=== PATIENT | female | born 1990 | race Hispanic/Latino ===

== ENCOUNTER 2016-08-18 23:23 | Emergency (ER) | payer SELFPAY ==
[~2016-08-18] VITALS: Ht 162.6 cm; Wt 75.0 kg
[~2016-08-18 23:23] MED LIST: ASCO250T6 PO; DSS100 PO; DUL10S PR; FES300 PO; IBUP-1152 PO; OXYC1TAB11 PO; PREN1TAB47 PO
[2016-08-18 23:26] VITALS: BP 120/83; PULSE 74; RESP 16; O2SAT 99
--- NOTE | 2016-08-19 00:26 | ED.REPORT ---
HPI-Abd Pain F Under 39 Date of Service Aug 19, 2016 ED Provider: Dr. Vic Camacho D.O. A 25 year old female with a history of class 2 TB presents to the ED accompanied by her family with sharp left flank pain onset tonight. She denies vaginal discharge or vaginal bleeding. She was seen at [facility] four days ago, diagnosed with a vaginal infection, and placed on Flagyl. She is still waiting for lab results from that visit. The patient speaks Irish and her niece was translating. Nursing Notes Stated Complaint: LOW BACK PAIN, LEG PAIN, FAINTING Chief Complaint: Female Abdominal Pain Nursing Notes Reviewed: Yes Allergies: Coded Allergies: No Known Allergies (Unverified Allergy, 11/15/12) Scheduled Ascorbic Acid-Expunged Drug, Do Not Renew! (Vitamin C-Expunged Drug, Do Not Renew!) 250 Mg Tablet 250 MG PO BIDWM Bisacodyl-Expunged Drug, Do Not Renew! (Bisacodyl-Expunged Drug, Do Not Renew!) 10 Mg Supp 10 MG CA DAILYP REMOVE WRAPPER PRIOR TO INSERTION Docusate Sod-Expunged Drug, Do Not Renew! (Docusate Sod-Expunged Drug, Do Not Renew!) 100 Mg Capsule 100 MG PO TID Ferrous Sulfate-Expunged Drug, Do Not Renew! (Feosol-Expunged Drug, Do Not Renew !) 325 Mg Tablet 325 MG PO BIDWM Vit/Fe Fumarate/Fa-Expunged Drug, Do (-Expunged Drug, Do Not Renew!) 1 Tab Tablet 1 TAB PO DAILY Scheduled PRN IBUPROFEN-Expunged Drug, Do Not Renew! (IBUPROFEN-Expunged Drug, Do Not Renew!) 800 Mg Tablet 800 MG PO every 6 hours PRN PRN TAKE WITH FOOD Oxycodone/APAP-Expunged Drug, Do Not Renew! (Percocet-Expunged Drug, Do Not Renew!) 1 Each Tablet 2 EACH PO Every 6 hours PRN PRN General Time Seen by MD: 00:26 Chief Complaint Flank pain left Hx Obtained From: Patient Arrived By: Walk-in Sudden in Onset?: No Onset Occurred: 5 - 8 hours ago Symptom Duration: Since onset Location: : Flank left Quality: Painful Severity: Current: Moderate Severity: Maximum: Moderate Associated with: Denies: Fever, Vaginal bleeding, Vaginal discharge Sexual History / Control: Reports Pt is sexually active Pertinent Negative: Relieved by nothing Recent Healthcare: Recent doctor visit Similar Sx Previous: No Past Medical History Past Medical History Class 2 TB; the patient completed treatment. Past Surgical History Reports: Smoking History Never Smoker Social History Other Social History: Good social support, Ambulatory Status Independent Review of Systems Constitutional: Denies: Fever Female: Reports: Flank pain (Left), Denies: Vaginal bleeding - abnl, Vaginal discharge Complete sys rev & neg: except as marked. Physical Exam Initial Vital Signs Vital Signs (First) Date Time Temp Pulse Resp B/P Pulse Ox O2 Delivery O2 Flow Rate FiO2 08/18/16 23:26 36.3 74 16 120/83 99 Room Air Initial VS: Reviewed Head / Eyes: Atraumatic, Normocephalic ENT: Conjunctiva normal, No scleral icterus Neck: Supple, Full range of motion Skin: Warm, Dry, No cyanosis Neurologic: Alert, Oriented, Nonfocal Psychiatric: Mood/affect normal, Behavior normal, Normal thought content General/Constitutional: Awake, Alert Respiratory / Chest: Breath sounds NL, Breath sounds = bilat, No respiratory distress Cardiovascular: Heart rate NL, Regular rhythm, Heart sounds NL Abdomen: Soft Tenderness/Guarding/Rebound: Positive: Tender LLQ... 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 (Moderate) Interpretation & Diagnostics US PELVIS TRANSVAGINAL Complex cystic abnormality in the region of the left ovary measuring 4.7 x 3.7cm in size which may represent a complex hemorrhagic cyst or cysts. Short interval followup ultrasound is recommended to ensure stability/resolution. Radiologist: Kishor Perez MD 08/19/2016 - 4:06:06 AM PST URINE DIP 1.005 sp gravity 6 pH Trace leukocytes Otherwise negative Lab Results Interpretation Result Diagram: 08/19/16 0110 08/19/16 0110 Test 08/18/16 23:35 08/19/16 01:10 08/19/16 01:25 Urine Color Straw (YELLOW) Urine Appearance Clear (CLEAR,HAZY) Urine pH 6.5 (5.0-8.0) Urine Specific Dexter 1.010 (1.003-1.035) Urine Protein Negativemg/dL (NEG,TRACE) Urine Glucose (UA) Negativemg/dL (NEGATIVE) Urine Ketones Negativemg/dL (NEGATIVE) Urine Occult Blood Trace (NEGATIVE) Urine Nitrite Negative (NEGATIVE) Urine Bilirubin Negative (NEGATIVE) Urine Urobilinogen Normalmg/dL (NORMAL) Urine Leukocyte Esterase Trace (NEGATIVE) Urine RBC 0-2/hpf (0-2) Urine WBC 0-5/hpf (0-5) Urine Epithelial Cells Few/hpf (NONE-MOD) Urine Crystals None seen (NONE SEEN) Urine Bacteria Few/hpf (NONE-FEW) Urine Hyaline Casts None/lpf (NONE) Urine Granular Casts None seen (NONE SEEN) Urine Waxy Casts None seen (NONE SEEN) Urine Red Blood Cell Casts None seen (NONE SEEN) Urine White Blood Cell Casts None seen (NONE SEEN) Urine Mucus Present (None Seen) Urine Trichomonas None seen (NONE SEEN) Urine Yeast None (NONE SEEN) Urinalysis Comment None Urine Culture Reflexed Indicated White Blood Count 10.9th/mm3 (3.8-10.1) Red Blood Count 5.13mil/mm3 (3.90-5.20) Hemoglobin 15.1g/dL (12.0-15.6) Hematocrit 43.2% (35.0-46.0) Mean Corpuscular Volume 84.2fL (81-100) Mean Corpuscular Hemoglobin 29.4pg (27.0-35.0) Mean Corpuscular Hemoglobin Concent 35.0% (32.0-37.0) Red Cell Distribution Width 12.8% (12.3-15.4) Platelet Count 241bil/L (150-400) Neutrophils (%) (Auto) 71.3% (40-74) Lymphocytes (%) (Auto) 17.5% (14-46) Monocytes (%) (Auto) 9.9% (4-12) Eosinophils (%) (Auto) 0.7% (0-5) Basophils (%) (Auto) 0.3% (0-3) Sodium Level 138mEq/L (134-144) Potassium Level 3.7mEq/L (3.5-5.2) Chloride Level 99mEq/L (97-108) Carbon Dioxide Level 24mmol/L (18-29) Blood Urea Nitrogen 9mg/dL (6-20) Creatinine 0.60mg/dL (0.57-1.00) Estimat Glomerular Filtration Rate 173mL/min (>59) Glucose Level 99mg/dL (60-99) Calcium Level 9.6mg/dL (8.5-10.1) Total Bilirubin 0.4mg/dL (0.0-1.2) Aspartate Amino Transf (AST/SGOT) 19U/L (0-50) Alanine Aminotransferase (ALT/SGPT) 13U/L (0-32) Alkaline Phosphatase 73U/L (25-150) Total Protein 7.9g/dL (6.4-8.4) Albumin 4.6g/dL (3.4-5.0) Hold Urine Received (Received) CT Abd / Pelvis Interpretation CONCLUSION: No hydronephrosis or renal calculi are identified. 5 cm cyst lesion in the region of the left ovary which may represent a mildly complex or hemorrhagic left ovarian cyst. If further evaluation of the reproductive organs is felt warranted, pelvic ultrasound may be of benefit. Findings suggesting constipation. Findings consistent with old granulomatous disease. Transmitted to ED by Kishor Perez M.D. at 08/19/16 - 2:05:17 AM PST Study type: Abdominal CT no contrast Re-Eval/Medical Decision Source of Hx: Old records Re-Evaluation/Progress : Time of Eval: 02:30 Patient Status: Condition improved Re-Evaluation/Progress Note: Pelvic exam performed. Discussed with patient CT results, diagnosis, and plan for US then probable discharge. Follow-up and return to the ER instructions given. Patient agrees with plan for care and all questions were addressed. Counseled Regarding: Diagnosis, Lab results, Need for follow-up, When/why to return to ED Discharge & Departure Shift Change Sign-Out Response to Therapy: Improved Primary Impression: Ovarian cyst Laterality: left Qualified Code: N83.20 - Unspecified ovarian cysts Additional Impression: UTI (urinary tract infection) Urinary tract infection type: acute cystitis Hematuria presence: without hematuria Qualified Code: N30.00 - Acute cystitis without hematuria Disposition: Home Discharge Condition All VS Reviewed: Yes Condition: Stable Patient Instructions: Cervicitis (ED), Ovarian Cyst (ED), Urinary Tract Infection in Women (DC) Additional Instructions: The imaging reveals that you have a hemorrhagic left ovarian cyst. This needs to be followed up with closely. You also have signs of a cervix infection as well as a urinary tract infection. Take both doxycycline and Bactrim twice daily for 7 days. Take 1-2 [place] every 6 hours as needed for pain. Do not drive or drink alcohol or consume acetaminophen while taking the [place]. Set up a follow-up with your depilatory painter/primary care physician. Have the ultrasound results reviewed. We have sent off a urine testing for pelvic infection and this too needs to be followed up with. If the urine test for pelvic infection or positive then your partner will need to be treated. No sexual intercourse until these results are back. You should be seen in follow up in the next 7 days. Avoid direct sunlight while taking the doxycycline. Referrals: Evan Julien MD (PCP) Benny Attestation Portions of this note were transcribed by Tata Diaz and Trish Rosado. I, Dr. Camacho, personally performed the history, physical exam, and medical decision- making; I reviewed and confirmed the accuracy of the information in the transcribed note. Signed by: Benny Centeno, 08/19/2016, 03:09 Signed by: Benny Singleton, 08/19/2016 04:12 copies to: Evan Julien MD, Todd P DO Aug 19, 2016 00:26 TATA DIAZ Aug 19, 2016 00:37 Trish Rosado Aug 19, 2016 04:12
[2016-08-19] MEDS ORDERED: cefTRIAXone Inj 2,000 MG in IV Premix 1 EACH IV ONE (00:35)
[2016-08-19] MEDS ORDERED: 0.9% Sodium Chloride 1,000 ML IV ONE (00:35)
[2016-08-19 00:43] LABS: APPEARANCE,URINE CLEAR (CLEAR,HAZY); COLOR,URINE STRAW (YELLOW); OCCULT BLOOD,URINE TRACE (NEGATIVE); PH,URINE 6.5 (5.0-8.0); UROBILINOGEN,URINE NORMAL (NORMAL)
[2016-08-19] MEDS: HYDROmorphone 0.5 mg/0.5 mL iSecure Syringe IVPUSH PRN ×2 (01:20→01:21)
[2016-08-19] MEDS: Ondansetron 2 mg/mL 2 mL Inj IVPUSH PRN (01:21)
[2016-08-19 01:29] LABS: BASOPHILS % (AUTO) 0.3 % (0-3); EOSINOPHILS % (AUTO) 0.7 % (0-5); MONOCYTES % (AUTO) 9.9 % (4-12); Mean Corpuscular Hemoglobin 29.4 pg (27.0-35.0); Mean Corpuscular Volume 84.2 fL (81-100); NEUTROPHILS % (AUTO) 71.3 % (40-74); Platelet Count 241 bil/L (150-400)
[2016-08-19] MEDS ORDERED: _HYDROcodone/APAP 5-325 mg Tablet PO PRN (02:00)
[2016-08-19 03:55] VITALS: BP 120/77; PULSE 87; RESP 16; O2SAT 99
--- NOTE | 2016-08-19 08:38 | DRSVH ---
PROCEDURE: CT KUB ([id number]) INDICATIONS: left flank pain TECHNIQUE: Noncontrast 5 mm thick sections acquired from the diaphragms to the symphysis. 5 mm thick coronal an d sagittal reformats were then performed. For radiation dose reduction, the following was used: aut omated exposure control, adjustment of mA and/or kV according to patient size. COMPARISON: [facility], US, US PELVIC+TRANSVAG+DOP LTD, 08/19/2016, 2:54. FINDINGS: Image quality: Excellent. Lung bases: There is a small nonspecific nodule in the right lower lobe measuring up to 4 mm. A lyn cified right lower lobe nodule is also demonstrated in the right posterior costophrenic angle consist ent with a calcified granuloma. Heart size is normal. Urinary system: Both kidneys are normal in size. No kidney stones. No hydronephrosis or perinephri c fat stranding. Both ureters appear non-dilated throughout their expected courses. Bladder wall th ickness is normal; no calcified bladder stones. Other solid organs: Liver and spleen are normal in size. Gallbladder appears within normal limits w ithout calcified gallstones. Pancreas is normal in contours. No adrenal nodules. Peritoneum and bowel: Unenhanced bowel loops demonstrate normal wall thickness and caliber. The amena endix is normal in appearance. No free fluid or air. Nodes and vessels: No retroperitoneal or mesenteric adenopathy by size criteria. Aorta and inferior vena cava are normal in caliber. Abdominal wall: No ventral hernias. Pelvis: The left ovary is enlarged measuring up to 5.2 x 3.7 cm with a septated left ovarian cyst de monstrated. Right ovary and uterus appear within normal size limits. No free pelvic fluid. No ingu inal hernias or adenopathy. Bones: No suspicious bony lesions. No vertebral body compression fractures. IMPRESSION: 1. No evidence of hydronephrosis or nephrolithiasis. 2. Enlargement of the left ovary with a septated cyst demonstrated. Recommend correlation with subs equent pelvic ultrasound. 3. Small 4 mm nonspecific right lower lobe pulmonary nodule. Recommend followup as per recommendati ons below. Fleischner Society criteria for SOLID lung nodule followup. Nodule size (mm)Low-risk patientHigh-risk [id number] follow-up neededFollow-up at 12 mo; if no aponte e, no further follow-up>5-6Gutpet-ot CT at 12 mo; if no pulmonary nodule. recommend followup as per r ecommendations below. change, no further follow-up needed.Initial follow-up CT at 6-12 mo, then 18-24 mo if no change. > 6-8Initial follow-up CT at 6-12 mo, then 18-24 mo if no change. Initial follow-up CT at 3-6 mo, then 9-12 mo and 24 mo if no change. >8Follow-up CT at 3, 9, 24 mo. Or PET and/or biopsy.Same as for low -risk pts. Dictated by: Cong Medeiros M.D. on 08/19/2016 at 8:37 Approved by: Cong Medeiros M.D. on 08/19/2016 at 8:37
--- NOTE | 2016-08-19 09:35 | DRSVH ---
PROCEDURE: US PELVIC SONOGRAM WITH TRANSVAG AND DOPPLER, LIMITED INDICATIONS: left flank and pelvic pain, 5cm cystic lesion CT TECHNIQUE: Real-time scanning was performed of the pelvic organs, with image documentation. Additional endovagi nal scanning was necessary due to incomplete visualization of the adnexal and endometrial structures by transabdominal scanning. COMPARISON: [facility], CT, CT KUB, 08/19/2016, 1:46. FINDINGS: (orthogonal measurements) Uterus size: 6.27 cm, 3.53 cm, 4.61 cm Endometrium thickness: 1.07 cm Right ovary size: 1.72 cm, 2.77 cm, 2.50 cm Left ovary size: 5.37 cm, 4.11 cm, 5.58 cm Transabdominal scanning: Limited scanning through the kidneys shows no hydronephrosis. No pathologi c free abdominal or pelvic fluid. Endovaginal scanning: Uterus: Uterus is normal in size and appearance. Endometrium is within normal physiologic limits. Ovaries: Normal right ovary. Complex, thickwalled cystic mass involves the left ovary measuring 4.8 x 4.9 x 3.7 cm. Doppler assessment demonstrates normal ovarian flow bilaterally. IMPRESSION: 1. Thick walled, complex left ovarian mass measuring up to 4.9 cm. Findings likely related to hemor rhagic ovarian cyst but tubo-ovarian abscess or other neoplastic process would be included in the dif ferential. Recommend clinical correlation and short-term followup pelvic ultrasound in 6-12 weeks is recommended. Note: These findings are concordant with the preliminary interpretation. Dictated by: Bj SINGER Interpreted: Phuong Webber MD on 08/19/2016 at 9:34 Transcribed by: YUMI on 08/19/2016 at 9:34 Approved by: Phuong Webber M.D. on 08/19/2016 at 16:30
== END 2016-08-19 03:54 | disposition home or self-care (01) ==
LOC: SED 23:23
DX: N83.209 Unspecified ovarian cyst, unspecified side (principal); N30.00 Acute cystitis without hematuria
CPT/HCPCS: 36415; 74176; 76830; 76856; 80053; 81000; 81025; 85025; 87086; 87491; 87591; 93976; 96361; 96365; 96375; 99285; J0696; J1170; J2405; J7030